=== PATIENT | male | born 1980 | race Caucasian/White ===

== ENCOUNTER 2022-11-03 09:24 | Outpatient (CLI) | payer BC | END 2022-11-03 09:25 | disposition home or self-care (01) | LOC: BICRAD 09:24 | PROVIDERS: ATTEND Family Medicine | DX: M54.50 Low back pain, unspecified (principal); M47.816 Spondylosis without myelopathy or radiculopathy, lumbar region | CPT/HCPCS: 72100 ==

== ENCOUNTER 2025-03-25 14:50 | Outpatient (CLI) | payer OTHER | END 2025-03-25 14:51 | disposition home or self-care (01) | LOC: ULT 14:50 | PROVIDERS: ATTEND Family Medicine | DX: S46.202A Unspecified injury of muscle, fascia and tendon of other parts of biceps, left arm, initial encounter (principal) | CPT/HCPCS: 76999 ==